=== PATIENT | male | born 1985 | race Two or more races ===

== ENCOUNTER 2025-01-21 10:38 | Emergency (ER) | payer BC ==
[~2025-01-21] VITALS: Ht 182.9 cm; Wt 90.7 kg
[2025-01-21 10:47] VITALS: TEMP 97.5
[2025-01-21] MEDS ORDERED: MECL-159 PO (11:05)
[2025-01-21 11:21] VITALS: BP 130/70; O2SAT 100
== END 2025-01-21 11:20 | disposition home or self-care (01) ==
LOC: ER 10:49
DX: R42 Dizziness and giddiness (principal); Z60.2 Problems related to living alone